=== PATIENT | male | born 1955 | race African-American/Black ===

== ENCOUNTER 2018-07-06 07:26 | Emergency (ER) | payer MEDICAID ==
[~2018-07-06] VITALS: Ht 185.4 cm; Wt 65.8 kg
[2018-07-06 10:29] VITALS: BP 126/92
[2018-07-06] MEDS ORDERED: HYDROcodone-ACET 10/325MG TAB PO ONE (10:30)
== END 2018-07-06 10:56 | disposition home or self-care (01) ==
LOC: ER 07:26
DX: S82.142D Displaced bicondylar fracture of left tibia, subsequent encounter for closed fracture with routine healing (principal); W18.39XD Other fall on same level, subsequent encounter
CPT/HCPCS: 29505; 73700; 93971

== ENCOUNTER 2018-08-18 16:14 | Emergency (ER) | payer MEDICAID ==
[~2018-08-18] VITALS: Ht 182.9 cm; Wt 64.9 kg
[2018-08-18] MEDS ORDERED: LEVETIRACETAM 500 MG TAB PO ONE (19:45)
[2018-08-18 21:00] VITALS: BP 139/75
== END 2018-08-18 21:23 | disposition home or self-care (01) ==
LOC: EDBD 16:14 → ER 16:18
DX: R56.9 Unspecified convulsions (principal)
CPT/HCPCS: 70450; 71045; 93005; 94761; 99284; J7030

== ENCOUNTER 2018-12-05 19:14 | Emergency (ER) | payer MEDICAID ==
[~2018-12-05] VITALS: Ht 185.4 cm; Wt 72.6 kg
[~2018-12-05 19:14] MED LIST: FURO40TA4 PO; GABA-339 PO; LEVE750T3 PO; METO-159 PO; ONDA4TAB5 PO; PHE100C PO
[2018-12-05] MEDS ORDERED: SODIUM CHLORIDE 0.9% 1,000 ML IVB ONE (20:10)
[2018-12-05 21:53] LABS: Basophils # (auto) 0.1 uL; Eosinophils # (auto) 0 uL; Eosinophils % (auto) 0.2 % (0.0-7.0); Hematocrit 40.8 % (41.0-53.0); Hemoglobin 12.9 g/dL (13.5-17.5); Lymphocytes % (auto) 8.9 % (10.0-50.0); Mean Corpuscular Hemoglobin 27.2 pg (28.0-32.0); Mean Corpuscular Hgb Conc. 31.5 g/dL (32.0-36.0); Mean Corpuscular Volume 86.4 fL (80.0-100.0); Monocytes # (auto) 0.6 uL; Monocytes % (auto) 5.5 % (0.0-12.0); Neutrophils # (auto) 9.3 uL; Neutrophils % (auto) 84.4 % (37.0-80.0); Nucleated Red Blood Cells % 0.2 %; Platelet Count (auto) 228 10^3/uL (140-450); Red Blood Cells 4.72 10^6/uL (4.5-5.90); Red Cell Distribution Width 14.3 % (11.8-14.3); White Blood Cell 11.1 10^3/uL (4.4-10.8)
[2018-12-05 22:01] VITALS: BP 148/84
[2018-12-05 22:02] LABS: INR 0.97 (0.9-1.15); Partial Thromboplastin Time 25.7 sec (23.78-33.04); Prothrombin Time 10.4 sec (9.27-12.13)
[2018-12-05 22:09] LABS: Albumin 4.1 g/dL (3.4-5.0); Calcium 9.8 mg/dL (8.5-10.1); Magnesium 2.5 mg/dL (1.6-2.6); Potassium 3.1 mmol/L (3.5-5.1)
[2018-12-05 22:28] LABS: Bilirubin, Total 0.4 mg/dL (0.2-1.0)
[2018-12-05] MEDS ORDERED: LEVETIRACETAM INJ 1,000 MG in D5W 5% 100 ML IV ONE (22:45)
[2018-12-05] MEDS ORDERED: LEVETIRACETAM 500 MG/5ML INJ IV ONE (23:01)
[2018-12-06] MEDS ORDERED: PANTOPRAZOLE 40 MG/10 ML VIAL IV ONE
[2018-12-06] MEDS ORDERED: ALUM & MAG HYDROX-SIMETH LIQ(MAALOX) 30 ML PO ONE
[2018-12-06] MEDS ORDERED: ONDANSETRON HCL 4 MG/2 ML VIAL IV ONE
[2018-12-06] MEDS ORDERED: ACETAMINOPHEN/CODEINE#3 (300/30mg) TAB PO ONE
[2018-12-06] MEDS ORDERED: POTASSIUM CHL 10% (20 MEQ/15ML) 15ml ORAL SOLN PO ONE (01:45)
== END 2018-12-06 01:54 | disposition home or self-care (01) ==
LOC: EDBD 19:14 → ER 19:25
DX: K29.70 Gastritis, unspecified, without bleeding (principal); F10.129 Alcohol abuse with intoxication, unspecified; G40.909 Epilepsy, unspecified, not intractable, without status epilepticus; I11.0 Hypertensive heart disease with heart failure; I50.9 Heart failure, unspecified
CPT/HCPCS: 36415; 74176; 80053; 80164; 80185; 80320; 82140; 83735; 85025; 85610; 85730; 93005; 96365; 96375; 99284; C9113; J1953; J2405; J7030; J7060; 96361

== ENCOUNTER 2023-04-21 08:56 | Inpatient (IN) | payer OTHER, MEDICAID ==
[~2023-04-21] VITALS: Ht 170.2 cm; Wt 54.7 kg
[~2023-04-21 08:56] MED LIST changes: +ONDA-144 PO; -ONDA4TAB5 PO; -PHE100C PO; +PHEN1CAP60 PO
[2023-04-21 09:35] VITALS: PULSE 79; RESP 28; O2SAT 100
[2023-04-21] MEDS ORDERED: ONDANSETRON HCL 4 MG/2 ML VIAL IV ONE (10:15)
[2023-04-21] MEDS ORDERED: LORazepam 2MG/ML-1ML VIAL IV ONE (10:15)
[2023-04-21 10:25] LABS: Urine Bacteria NONE SEEN /hpf (None Seen); Urine Blood Negative /uL (Negative); Urine Clarity Clear (Clear); Urine Color Yellow (Yellow); Urine Protein, UAD Negative (Negative); Urine Specific Gravity 1.012 (1.001-1.035); Urine Urobilinogen Normal (Negative); Urine WBC <1 /hpf (0 - 3)
[2023-04-21 10:35] LABS: Albumin 3.9 g/dL (3.4-5.0); Calcium 9.3 mg/dL (8.5-10.1); Potassium 4.2 mmol/L (3.5-5.1)
[2023-04-21 10:38] LABS: BUN/Creatinine Ratio 12.2 (10.0-20.0); Total Protein 7.3 g/dL (6.4-8.2)
[2023-04-21 10:54] LABS: Basophils # (auto) 0.1 10 ^3/uL (0-0.2); Basophils % (auto) 0.9 % (0.0-2.0); Eosinophils # (auto) 0 10 ^3/uL (0-0.8); Eosinophils % (auto) 0.1 % (0.0-7.0); Hematocrit 37.6 % (41.0-53.0); Hemoglobin 11.8 g/dL (13.5-17.5); Lymphocytes # (auto) 0.6 10 ^3/uL (0.4-5.4); Lymphocytes % (auto) 7.6 % (10.0-50.0); Mean Corpuscular Hemoglobin 25.6 pg (28.0-32.0); Mean Corpuscular Hgb Conc. 31.3 g/dL (32.0-36.0); Mean Corpuscular Volume 81.9 fL (80.0-100.0); Monocytes # (auto) 0.5 10 ^3/uL (0-1.3); Monocytes % (auto) 7.1 % (0.0-12.0); Neutrophils # (auto) 6.1 10 ^3/uL (1.6-8.6); Neutrophils % (auto) 84.3 % (37.0-80.0); Red Cell Distribution Width 13.5 % (11.8-14.3); White Blood Cell 7.3 10^3/uL (4.4-10.8)
[2023-04-21 11:47] LABS: INR 1.1 (0.9-1.15); Partial Thromboplastin Time 22.8 SEC (24.5-34.5); Prothrombin Time 11.5 sec (9.3-11.8)
[2023-04-21] MEDS ORDERED: PHENYTOIN IV DILANTIN 1,000 MG in SODIUM CHL 0.9% 250 ML IV ONE (13:00)
[2023-04-21] MEDS ORDERED: MORPHINE SULFATE INJ 2 MG/ml SYRG IV PRN (14:15)
[2023-04-21] MEDS ORDERED: HYDROcodone-ACET 5/325MG TAB PO ONE (14:15)
[2023-04-21] MEDS ORDERED: NITROGLYCERIN 0.4 MG SL TAB SL PRN (14:15)
[2023-04-21] MEDS ORDERED: ONDANSETRON ODT 4 MG TAB ONE (14:49)
[2023-04-21] MEDS: cefTRIAXone 1GM/50ML D5W 50 ML IV SCH (14:59)
[2023-04-21] MEDS ORDERED: ONDANSETRON ODT 4 MG TAB PO ONE (15:00)
[2023-04-21] MEDS: PROMETHAZINE HCL 25 MG/ML 1ML IV PRN ×2 (15:26→23:43)
[2023-04-21] MEDS: D5W/SOD CHLO 0.9% 1,000 ML IV SCH (15:31)
[2023-04-21 19:55] VITALS: PULSE 79; RESP 16; O2SAT 97
[2023-04-21] MEDS: HYDROcodone-ACET 5/325MG TAB PO PRN (20:47)
[2023-04-21] MEDS ORDERED: traZODone HCL 50 MG TAB PO PRN (21:45)
[2023-04-21] MEDS: PANTOPRAZOLE 40 MG/10 ML VIAL INJ IV SCH (22:15)
[2023-04-21] MEDS: DOCUSATE SOD 100 MG CAP PO SCH (22:16)
[2023-04-21] MEDS: LACTULOSE 20Gm/30ML SOLN PO SCH (22:16)
[2023-04-21] MEDS: levETIRAcetam 500 MG TAB PO SCH (22:16)
[2023-04-21] MEDS: PHENYTOIN SODIUM 50 MG/ML 2ML VIAL IV SCH (22:37)
[2023-04-22] VITALS (7 sets, daily range): BP systolic 154–165; BP diastolic 80–98; PULSE 102–117; RESP 15–19; TEMP 97.8–98.1; O2SAT 94–100
[2023-04-22] MEDS: hydrALAZINE HCL 20 MG/ML VL IV PRN ×2 (02:05→18:03)
[2023-04-22] MEDS: PROMETHAZINE HCL 25 MG/ML 1ML IV PRN ×3 (04:11→15:11)
[2023-04-22] MEDS: D5W/SOD CHLO 0.9% 1,000 ML IV SCH ×3 (04:16→18:54)
[2023-04-22] MEDS: HYDROcodone-ACET 5/325MG TAB PO PRN ×2 (05:04→20:33)
[2023-04-22 05:37] LABS: Eosinophils # (auto) 0 10 ^3/uL (0-0.8); Hemoglobin 12.6 g/dL (13.5-17.5); Lymphocytes # (auto) 0.8 10 ^3/uL (0.4-5.4); Mean Corpuscular Volume 80.4 fL (80.0-100.0); Red Blood Cells 4.86 10^6/uL (4.5-5.90); Red Cell Distribution Width 13.7 % (11.8-14.3)
[2023-04-22 05:39] LABS: Basophils # (auto) 0 10 ^3/uL (0-0.2); Basophils % (auto) 0.4 % (0.0-2.0); Hematocrit 39.1 % (41.0-53.0); Lymphocytes % (auto) 7.4 % (10.0-50.0); Mean Corpuscular Hgb Conc. 32.3 g/dL (32.0-36.0); Monocytes # (auto) 0.8 10 ^3/uL (0-1.3); Monocytes % (auto) 7.8 % (0.0-12.0); Neutrophils # (auto) 9.2 10 ^3/uL (1.6-8.6); Neutrophils % (auto) 84.4 % (37.0-80.0); White Blood Cell 10.9 10^3/uL (4.4-10.8)
[2023-04-22 06:16] LABS: Albumin 4.1 g/dL (3.4-5.0); BUN/Creatinine Ratio 13.2 (10.0-20.0); Bilirubin, Total 0.7 mg/dL (0.2-1.0); Calcium 9.1 mg/dL (8.5-10.1); Total Protein 7.6 g/dL (6.4-8.2)
[2023-04-22] MEDS: PHENYTOIN SODIUM 50 MG/ML 2ML VIAL IV SCH (06:26)
[2023-04-22 06:27] LABS: Potassium 2.9 mmol/L (3.5-5.1)
[2023-04-22] MEDS: POTASSIUM CHL 20MEQ/100ML 100 ML IV SCH ×3 (08:33→13:45)
[2023-04-22] MEDS: cefTRIAXone 1GM/50ML D5W 50 ML IV SCH (09:34)
[2023-04-22] MEDS: PANTOPRAZOLE 40 MG/10 ML VIAL INJ IV SCH ×2 (09:50→22:18)
[2023-04-22] MEDS: LACTULOSE 20Gm/30ML SOLN PO SCH ×2 (09:50→22:00)
[2023-04-22] MEDS: ENOXAPARIN SOD 40 MG/0.4 ML SYRINGE SC SCH (09:51)
[2023-04-22] MEDS: DOCUSATE SOD 100 MG CAP PO SCH ×2 (09:55→22:22)
[2023-04-22] MEDS: levETIRAcetam 500 MG TAB PO SCH ×2 (10:37→22:16)
[2023-04-22] MEDS ORDERED: POTASSIUM CHL 20 Meq TABLET PO ONE (14:00)
[2023-04-22] MEDS: MORPHINE SULFATE INJ 2 MG/ml SYRG IV PRN ×2 (15:11→22:18)
[2023-04-22] MEDS ORDERED: SODIUM CHLORIDE 0.9% 500 ML IV ONE (18:45)
[2023-04-22] MEDS: METOPROLOL TARTRATE 1MG/1ML-5ML VIAL IV PRN (18:53)
[2023-04-22] MEDS: ONDANSETRON HCL 4 MG/2 ML VIAL IV PRN (18:55)
[2023-04-22] MEDS ORDERED: POTASSIUM CHL 20MEQ/100ML 100 ML IV ONE (23:45)
[2023-04-23] VITALS (25 sets, daily range): BP systolic 126–220; BP diastolic 63–108; PULSE 80–152; RESP 14–30; TEMP 97.2–98.4; O2SAT 94–100
[2023-04-23] MEDS: LACTULOSE 20Gm/30ML SOLN PO SCH ×3 (02:44→22:23)
[2023-04-23] MEDS: D5W/SOD CHLO 0.9% 1,000 ML IV SCH ×2 (02:45→12:00)
[2023-04-23] MEDS: ONDANSETRON HCL 4 MG/2 ML VIAL IV PRN (08:30)
[2023-04-23] MEDS: cefTRIAXone 1GM/50ML D5W 50 ML IV SCH (08:30)
[2023-04-23] MEDS: MORPHINE SULFATE INJ 2 MG/ml SYRG IV PRN ×2 (08:31→13:58)
[2023-04-23] MEDS ORDERED: cloNIDine 0.2 mg/24hr 7DAY PATCH TD ONE (09:15)
[2023-04-23] MEDS ORDERED: hydrALAZINE HCL 20 MG/ML VL IV PRN (09:15)
[2023-04-23 09:18] LABS: Anion Gap 13 (5-15); BUN/Creatinine Ratio 11.4 (10.0-20.0); Blood Urea Nitrogen 9 mg/dL (7-18); Calcium 9.2 mg/dL (8.5-10.1); Carbon Dioxide 21 mmol/L (21-32); Chloride 102 mmol/L (98-107); GFR African American 125 mL/min; GFR Non-African American 104 mL/min; Glucose 109 mg/dL (74-106); Potassium 3.5 mmol/L (3.5-5.1); Sodium 136 mmol/L (136-145)
[2023-04-23] MEDS: DOCUSATE SOD 100 MG CAP PO SCH ×2 (09:35→22:23)
[2023-04-23] MEDS: PANTOPRAZOLE 40 MG/10 ML VIAL INJ IV SCH (09:35)
[2023-04-23] MEDS: ENOXAPARIN SOD 40 MG/0.4 ML SYRINGE SC SCH (09:35)
[2023-04-23] MEDS: HYDROcodone-ACET 5/325MG TAB PO PRN (11:55)
[2023-04-23] MEDS: METOPROLOL TARTRATE 1MG/1ML-5ML VIAL IV PRN ×2 (12:39→17:04)
[2023-04-23] MEDS ORDERED: ADENOSINE 6 MG/2 ML INJ IV ONE (13:45)
[2023-04-23] MEDS: PROMETHAZINE HCL 25 MG/ML 1ML IV PRN (13:58)
[2023-04-23 14:18] LABS: Alcohol, Urine < 3.0 mg/dL (0-10); Amphetamine Screen, Urine NEGATIVE (NEGATIVE); Barbiturate Scree,Urine NEGATIVE (NEGATIVE); Benzodiazephine Screen, Urine NEGATIVE (NEGATIVE); Cannabinoid Screen, Urine POSITIVE (NEGATIVE)
[2023-04-23] MEDS ORDERED: METOPROLOL TARTRATE 1MG/1ML-5ML VIAL IV ONE ×3 (14:22→14:45)
[2023-04-23] MEDS ORDERED: AMIODARONE BOLUS KIT 100 ML IV ONE (14:30)
[2023-04-23] MEDS ORDERED: METOPROLOL SUCCINATE XL 50 MG TAB PO ONE (14:30)
[2023-04-23] MEDS ORDERED: SOD CHL 0.45% 1,000 ML IV ONE (14:30)
[2023-04-23 16:20] LABS: Basophils # (auto) 0.1 10 ^3/uL (0-0.2); Eosinophils # (auto) 0 10 ^3/uL (0-0.8)
[2023-04-23 16:22] LABS: Basophils % (auto) 0.6 % (0.0-2.0); Eosinophils % (auto) 0.3 % (0.0-7.0); Hematocrit 37.5 % (41.0-53.0); Mean Corpuscular Hemoglobin 26.2 pg (28.0-32.0); Mean Corpuscular Volume 81.9 fL (80.0-100.0); Monocytes % (auto) 9.5 % (0.0-12.0); Neutrophils # (auto) 8.8 10 ^3/uL (1.6-8.6); Neutrophils % (auto) 80.6 % (37.0-80.0); Red Blood Cells 4.58 10^6/uL (4.5-5.90); Red Cell Distribution Width 13.9 % (11.8-14.3); White Blood Cell 10.9 10^3/uL (4.4-10.8)
[2023-04-23 16:24] LABS: Cocaine Screen, Urine NEGATIVE (NEGATIVE); Opiate Scree,Urine POSITIVE (NEGATIVE); Phencyclidine Screen, Urine NEGATIVE (NEGATIVE)
[2023-04-23] MEDS: MAGNESIUM SULFATE 1GM/100ML 100 ML IV SCH ×2 (16:27→18:21)
[2023-04-23] MEDS ORDERED: MORPHINE SULFATE INJ 2 MG/ml SYRG IV ONE (17:00)
[2023-04-23] MEDS: cloNIDine HCL 0.1 MG TAB PO SCH ×2 (17:06→22:24)
[2023-04-23] MEDS: amLODIPine BESYLATE 5 MG TAB PO SCH (17:06)
[2023-04-23] MEDS ORDERED: traZODone HCL 50 MG TAB PO PRN (22:00)
[2023-04-24] VITALS (19 sets, daily range): BP systolic 113–169; BP diastolic 50–92; PULSE 73–100; RESP 16–26; TEMP 98–98.8; O2SAT 96–100
[2023-04-24] MEDS: D5W/SOD CHLO 0.9% 1,000 ML IV SCH ×2 (01:20→14:40)
[2023-04-24] MEDS ORDERED: SENNA 8.6 MG TAB PO SCH (07:00)
[2023-04-24] MEDS: DOCUSATE SOD 100 MG CAP PO SCH (08:49)
[2023-04-24] MEDS: LACTULOSE 20Gm/30ML SOLN PO SCH (08:49)
[2023-04-24 08:50] LABS: Basophils # (auto) 0.1 10 ^3/uL (0-0.2); Eosinophils # (auto) 0.1 10 ^3/uL (0-0.8); Nucleated Red Blood Cells % 0.1 %
[2023-04-24 08:53] LABS: Basophils % (auto) 1.2 % (0.0-2.0); Eosinophils % (auto) 0.9 % (0.0-7.0); Hematocrit 39.9 % (41.0-53.0); Hemoglobin 12.7 g/dL (13.5-17.5); Lymphocytes % (auto) 11.2 % (10.0-50.0); Mean Corpuscular Hemoglobin 26.4 pg (28.0-32.0); Mean Corpuscular Hgb Conc. 31.9 g/dL (32.0-36.0); Mean Corpuscular Volume 82.8 fL (80.0-100.0); Monocytes # (auto) 0.7 10 ^3/uL (0-1.3); Monocytes % (auto) 7.5 % (0.0-12.0); Neutrophils # (auto) 7.1 10 ^3/uL (1.6-8.6); Neutrophils % (auto) 79.2 % (37.0-80.0); Red Blood Cells 4.81 10^6/uL (4.5-5.90); Red Cell Distribution Width 13.7 % (11.8-14.3)
[2023-04-24] MEDS: cefTRIAXone 1GM/50ML D5W 50 ML IV SCH (09:04)
[2023-04-24] MEDS: MORPHINE SULFATE INJ 2 MG/ml SYRG IV PRN ×2 (09:04→15:05)
[2023-04-24] MEDS: cloNIDine HCL 0.1 MG TAB PO SCH ×2 (09:05→14:58)
[2023-04-24] MEDS: ENOXAPARIN SOD 40 MG/0.4 ML SYRINGE SC SCH (09:05)
[2023-04-24] MEDS: amLODIPine BESYLATE 5 MG TAB PO SCH (09:07)
[2023-04-24 09:13] LABS: Potassium 3.5 mmol/L (3.5-5.1)
[2023-04-24 09:21] LABS: BUN/Creatinine Ratio 12.8 (10.0-20.0); Bilirubin, Total 1.1 mg/dL (0.2-1.0); Calcium 9.1 mg/dL (8.5-10.1); Magnesium 2.5 mg/dL (1.6-2.6)
[2023-04-24] MEDS ORDERED: PANTOPRAZOLE 40 MG/10 ML VIAL INJ IV SCH (10:00)
[2023-04-24] MEDS ORDERED: METOPROLOL SUCCINATE XL 50 MG TAB PO SCH (10:00)
[2023-04-24] MEDS ORDERED: SENN-105 PO (15:45)
[2023-04-24] MEDS ORDERED: PANT40T PO (15:45)
[2023-04-24] MEDS ORDERED: TRAZ-227 PO (15:45)
[2023-04-24] MEDS ORDERED: CLON0.1T PO (15:45)
[2023-04-24] MEDS ORDERED: AML5T PO (15:45)
[2023-04-24] MEDS ORDERED: AMIO200T33 PO (15:46)
== END 2023-04-24 17:15 | disposition home or self-care (01) | DRG 392 ==
LOC: ER 08:56 → EDBD 08:56 → TELE 14:04 → TELE-CENTR 04-22 14:10 → DOU IN ICU 04-23 14:32
PROVIDERS: ADMIT Hospitalist; ATTEND Hospitalist
PROC: 05H933Z Insertion of Infusion Device into Right Brachial Vein, Percutaneous Approach (ICD-10-PCS; principal; 2023-04-21)
PROC: B54MZZA Ultrasonography of Right Upper Extremity Veins, Guidance (ICD-10-PCS; 2023-04-21)
DX: K29.70 Gastritis, unspecified, without bleeding (principal); R64 Cachexia; I69.354 Hemiplegia and hemiparesis following cerebral infarction affecting left non-dominant side; I47.1 Supraventricular tachycardia; Z68.1 Body mass index [BMI] 19.9 or less, adult; K21.9 Gastro-esophageal reflux disease without esophagitis; G40.909 Epilepsy, unspecified, not intractable, without status epilepticus; F10.10 Alcohol abuse, uncomplicated; Y90.9 Presence of alcohol in blood, level not specified; I34.0 Nonrheumatic mitral (valve) insufficiency; I50.9 Heart failure, unspecified; I11.0 Hypertensive heart disease with heart failure; R19.7 Diarrhea, unspecified; Z79.899 Other long term (current) drug therapy; Z81.1 Family history of alcohol abuse and dependence; Z82.49 Family history of ischemic heart disease and other diseases of the circulatory system
CPT/HCPCS: 36415; 70450; 71045; 74176; 80048; 80053; 80061; 80185; 80307; 81001; 83036; 83605; 83690; 83735; 83880; 84132; 84443; 84484; 85025; 85610; 85730; 87081; 93005; 93306; 96365; 96375; C9113; G0378; J0696; J2405; J3480; J7060; Q0162

== ENCOUNTER 2023-10-14 07:50 | Emergency (ER) | payer OTHER, MEDICAID ==
[~2023-10-14] VITALS: Ht 185.4 cm; Wt 45.4 kg
[~2023-10-14 07:50] MED LIST changes: +AMIO200T33 PO; +AML5T PO; +CLON0.1T PO; +PANT40T PO; +SENN-105 PO; +TRAZ-227 PO
[2023-10-14 08:26] LABS: Basophils # (auto) 0.1 10 ^3/uL (0-0.2); Basophils % (auto) 1.7 % (0.0-2.0); Eosinophils # (auto) 0 10 ^3/uL (0-0.8); Eosinophils % (auto) 0.5 % (0.0-7.0); Hematocrit 41.2 % (41.0-53.0); Mean Corpuscular Hemoglobin 25.7 pg (28.0-32.0); Mean Corpuscular Hgb Conc. 31.7 g/dL (32.0-36.0); Mean Corpuscular Volume 81.3 fL (80.0-100.0); Monocytes # (auto) 0.6 10 ^3/uL (0-1.3); Monocytes % (auto) 8.2 % (0.0-12.0); Neutrophils # (auto) 5.2 10 ^3/uL (1.6-8.6); Neutrophils % (auto) 75.6 % (37.0-80.0); Nucleated Red Blood Cells % 0.1 %; Red Blood Cells 5.07 10^6/uL (4.5-5.90); Red Cell Distribution Width 13.6 % (11.8-14.3); White Blood Cell 6.9 10^3/uL (4.4-10.8)
[2023-10-14 08:39] LABS: Alanine Aminotransferase 29 U/L (7-40); Albumin 4.5 g/dL (3.2-4.8); Alkaline Phosphatase 171 U/L (46-116); Anion Gap 10 (5-15); Aspartate Aminotransferase 28 U/L (13-40); Bilirubin, Total 0.9 mg/dL (0.2-1.0); Blood Urea Nitrogen 7 mg/dL (9-23); Calcium 9.7 mg/dL (8.5-10.1); Carbon Dioxide 22 mmol/L (20-30); Chloride 104 mmol/L (98-107); Glucose 143 mg/dL (74-106); Potassium 3.2 mmol/L (3.5-5.1); Sodium 136 mmol/L (136-145); Total Protein 7.4 g/dL (5.7-8.2)
[2023-10-14] MEDS: POTASSIUM EFFERVESENT TAB 25 MEQ PO ONE (08:45)
[2023-10-14] MEDS: SODIUM CHLORIDE 0.9% 1,000 ML IV ONE (09:12)
[2023-10-14] MEDS: ONDANSETRON HCL 4 MG/2 ML VIAL IV ONE (10:51)
[2023-10-14] MEDS: HYDROcodone-ACET 10/325MG TAB PO ONE (10:51)
[2023-10-14 12:42] VITALS: BP 158/83; PULSE 74; RESP 16; TEMP 97.9; O2SAT 100
== END 2023-10-14 12:44 | disposition home or self-care (01) ==
LOC: ER 07:50 → EDBD 07:50 → ER 12:44
DX: E87.6 Hypokalemia (principal); R73.9 Hyperglycemia, unspecified; R10.9 Unspecified abdominal pain; I11.0 Hypertensive heart disease with heart failure; I50.9 Heart failure, unspecified; Z79.899 Other long term (current) drug therapy
CPT/HCPCS: 36415; 80053; 85025; 96361; 96374; 99283; J2405; J7030

== ENCOUNTER 2023-12-23 20:43 | Emergency (ER) | payer OTHER, MEDICAID ==
[~2023-12-23] VITALS: Ht 185.4 cm; Wt 63.5 kg
[2023-12-23 22:00] LABS: Basophils # (auto) 0.1 10 ^3/uL (0-0.2); Eosinophils # (auto) 0 10 ^3/uL (0-0.8); Eosinophils % (auto) 0.1 % (0.0-7.0); White Blood Cell 9.2 10^3/uL (4.4-10.8)
[2023-12-23 22:02] LABS: Basophils % (auto) 1.2 % (0.0-2.0); Hemoglobin 11.5 g/dL (13.5-17.5); Lymphocytes % (auto) 10.8 % (10.0-50.0); Mean Corpuscular Hemoglobin 25.7 pg (28.0-32.0); Mean Corpuscular Hgb Conc. 31.2 g/dL (32.0-36.0); Mean Corpuscular Volume 82.4 fL (80.0-100.0); Monocytes # (auto) 0.7 10 ^3/uL (0-1.3); Monocytes % (auto) 7.8 % (0.0-12.0); Neutrophils # (auto) 7.4 10 ^3/uL (1.6-8.6); Neutrophils % (auto) 80.1 % (37.0-80.0); Red Blood Cells 4.49 10^6/uL (4.5-5.90); Red Cell Distribution Width 13.4 % (11.8-14.3)
[2023-12-23 22:15] LABS: Alanine Aminotransferase 41 U/L (7-40); Albumin 4.6 g/dL (3.2-4.8); Alkaline Phosphatase 154 U/L (46-116); Anion Gap 8 (5-15); Aspartate Aminotransferase 36 U/L (13-40); BUN/Creatinine Ratio 15.7 (10.0-20.0); Bilirubin, Total 0.9 mg/dL (0.2-1.0); Blood Urea Nitrogen 14 mg/dL (9-23); Calcium 9.8 mg/dL (8.7-10.4); Carbon Dioxide 23 mmol/L (20-30); Chloride 106 mmol/L (98-107); Glucose 142 mg/dL (74-106); Lipase 32 U/L (12-53); Potassium 2.9 mmol/L (3.5-5.1); Sodium 137 mmol/L (136-145); Total Protein 7.3 g/dL (5.7-8.2)
[2023-12-23] MEDS ORDERED: PEGSOL11 OR (23:35)
[2023-12-23] MEDS ORDERED: DICY10CA PO (23:35)
[2023-12-24] MEDS: DICYCLOMINE HCL (10MG/ML) 2 ML AMPULE IM ONE (00:21)
[2023-12-24] MEDS: POTASSIUM CHL 20 Meq TABLET PO ONE (00:21)
[2023-12-24 00:38] VITALS: BP 132/76; PULSE 78; RESP 16; TEMP 98.2; O2SAT 98
== END 2023-12-24 00:36 | disposition home or self-care (01) ==
LOC: EDBD 20:43 → ER 20:43
DX: K59.00 Constipation, unspecified (principal); E87.6 Hypokalemia; I11.0 Hypertensive heart disease with heart failure; I50.9 Heart failure, unspecified; Z79.899 Other long term (current) drug therapy
CPT/HCPCS: 36415; 74176; 80053; 83690; 85025; 93005; 96372; 99285; J0500